=== PATIENT | male | born 1940 | race Hispanic/Latino ===

== ENCOUNTER 2016-12-09 11:25 | Emergency (ER) | payer OTHER ==
[~2016-12-09] VITALS: Ht 162.6 cm; Wt 82.0 kg
[~2016-12-09 11:25] MED LIST: AMLODIPINE BESY10 MG PO; GLIMEPIRIDE4 MG PO; LOPRESSOR50 MG PO; METFORMIN HCL1000 MG PO; MOTRIN600 MG PO; NORCO 5/3251 TABLET PO; RYTHMOL150 MG PO; SIMVASTATIN40 MG PO
[2016-12-09 14:58] LABS: EOSINOPHIL (%) 1.5 % (0-5); EOSINOPHIL COUNT 0.1 K/uL (0-0.3); HEMATOCRIT 41.7 % (38.0-50.0); IMMATURE GRANULOCYTE (%) 0.6 % (0.0-0.7); IMMATURE GRANULOCYTE COUNT 0.1 K/uL; INSTRUMENT ABS NEUTROPHIL CT 5.5 K/uL; LYMPHOCYTE COUNT 1.5 K/uL (1.0-2.8); MCH 31.2 PG (29.0-34.0); MCV 89.1 FL (86-99); MEAN PLAT.VOLUME 10.2 uM^3 (9.0-12.4); MONOCYTE (%) 8.4 % (3-12); MONOCYTE COUNT 0.7 K/uL (0-0.8); NEUTROPHIL (%) 70.2 % (45-76); NEUTROPHIL COUNT 5.5 K/uL (1.8-6.4); PLATELET COUNT 249 K/uL (156-360); RBC DIS.WIDTH-CV 11.9 % (11.8-14.6); RBC DIS.WIDTH-SD 37.5 % (39-53); RED BLOOD COUNT 4.68 M/uL (4.00-5.50); WHITE BLOOD COUNT 7.8 K/uL (4.1-10.2)
[2016-12-09 15:09] LABS: CHLORIDE 113 mEq/L (99-109); SODIUM 141 mEq/L (136-147)
[2016-12-09 15:10] LABS: GLUCOSE 102 mg/dL (70-99)
[2016-12-09 15:12] LABS: ANION GAP 7 MEQ/L (2-14)
[2016-12-09 15:14] LABS: GFR ESTIMATE (CALCULATED) 28 mL/min/
[2016-12-09 15:15] LABS: UREA NITROGEN (BUN) 34 mg/dL (9-23)
[2016-12-09] MEDS ORDERED: ANTIVERT25 MG PO (16:19)
[2016-12-09 16:33] VITALS: BP 138/76
== END 2016-12-09 16:35 | disposition home or self-care (01) ==
LOC: EME 11:25
PROVIDERS: Physician Assistant
DX: R42 Dizziness and giddiness (principal); E11.9 Type 2 diabetes mellitus without complications; I10 Essential (primary) hypertension; I25.2 Old myocardial infarction; Z87.891 Personal history of nicotine dependence; Z79.84 Long term (current) use of oral hypoglycemic drugs; Z85.038 Personal history of other malignant neoplasm of large intestine
CPT/HCPCS: 70450; 80048; 85025; 93005; 99281; 99284